=== PATIENT | male | born 1945 | race African-American/Black ===

== ENCOUNTER 2017-12-06 16:24 | Emergency (ER) | payer MEDICARE ==
[~2017-12-06] VITALS: Ht 185.4 cm; Wt 97.5 kg
[~2017-12-06 16:24] MED LIST: DIOVAN HCT 1601 EAC1 PO; KLOR-CON 1010 MEQ PO; LEVAQUIN 500 M500 M4 PO; MULTIVITAMINS PO; NORCO 5-325 TA1 EACH PO; PLAVIX 75 MG TA75 MG PO; POTASSIUM20 PO; SIMVASTATIN40 MG PO; VALSARTAN-HCTZ1 EAC3 PO
[2017-12-06 16:29] VITALS: BP 192/98
[2017-12-06 18:09] LABS: BASOPHILS 1.1 % (0.0-2.0); EOSINOPHILS 0.8 % (0.0-3.0); HEMATOCRIT 43.4 % (42.0-52.0); HEMOGLOBIN 14.1 gm/dL (14.0-18.0); LYMPHOCYTES 14.7 % (24.0-44.0); MCH 27.9 pg (26.0-34.0); MCHC 32.5 g/dL (28.0-37.0); MCV 85.8 fL (80.0-100.0); MONOCYTES 11.2 % (1.0-8.0); PLATELET COUNT 212 thou/uL (150-400); POLYS 72.2 % (36.0-66.0); RBC 5.06 mil/uL (4.50-6.00); RDW 14.5 % (10.5-14.5); WBC 6.9 thou/uL (4.0-11.0)
[2017-12-06 18:19] LABS: CALCIUM 8.8 mg/dL (8.5-10.1); CREATININE 1.3 mg/dL (0.7-1.3); POTASSIUM 3.5 mmol/L (3.5-5.1)
[2017-12-06] MEDS ORDERED: VALACYCLOVIR1000 MG PO (18:24)
[2017-12-06] MEDS ORDERED: HYDROCODONE-AP1 EAC6 PO (18:24)
== END 2017-12-06 19:00 | disposition home or self-care (01) ==
LOC: ER 16:24
PROVIDERS: Physician Assistant
DX: R51 Headache (principal); B02.9 Zoster without complications; I10 Essential (primary) hypertension